=== PATIENT | female | born 1990 | race African-American/Black ===

== ENCOUNTER 2024-02-29 09:03 | Inpatient (IN) | payer OTHER ==
[2024-02-29 10:25] VITALS: BMI 24.4
[2024-02-29] MEDS ORDERED: MAGNESIUM HYDROX 2400MG/30ML ORAL SUSPENSION 30 ML CUP PO PRN (10:31)
[2024-02-29] MEDS ORDERED: IBUPROFEN 600 MG TABLET (FP) PO PRN (10:31)
[2024-02-29] MEDS ORDERED: guaiFENesin 600 MG TABLET.ER (FP) PO PRN (10:31)
[2024-02-29] MEDS ORDERED: ONDANSETRON *ODT* 4 MG TABLET SL PRN (10:31)
[2024-02-29] MEDS ORDERED: BENZOCAINE/MENTHOL (CHLORASEPTIC ) LOZENGE MM PRN (10:31)
[2024-02-29] MEDS ORDERED: NALOXONE HCL 0.4 MG/ML VIAL IM PRN (10:31)
[2024-02-29] MEDS ORDERED: ACETAMINOPHEN 325 MG TABLET (FP) PO PRN (10:31)
[2024-02-29] MEDS ORDERED: NALOXONE (NARCAN) HCL 4 MG/0.1 ML SPRAY NS PRN (10:31)
[2024-02-29] MEDS ORDERED: BISMUTH SUBSALICYLATE 524 MG/30 ML PO PRN (10:31)
[2024-02-29] MEDS ORDERED: POLYETHYLENE GLYCOL (HEALTHYLAX) 3350 17 GM PACKET PO PRN (10:31)
[2024-02-29] MEDS ORDERED: LOPERAMIDE HCL 2 MG CAPSULE PO PRN (10:31)
[2024-02-29] MEDS ORDERED: BENZONATATE 200 MG CAPSULE PO PRN (10:31)
[2024-02-29] MEDS ORDERED: IBUPROFEN 400 MG TABLET (FP) PO PRN (10:31)
[2024-02-29] MEDS ORDERED: DICYCLOMINE HCL 10 MG CAPSULE PO PRN (10:31)
[2024-02-29] MEDS ORDERED: MAG HYDROX/AL HYDROX/SIMETH 30 ML UNIT-DOSE CUP PO PRN (10:31)
[2024-02-29] MEDS: METHOCARBAMOL 500 MG TABLET PO PRN (12:46)
[2024-02-29] MEDS: hydrOXYzine PAMOATE 25 MG CAPSULE (FP) PO PRN (12:46)
[2024-02-29] MEDS ORDERED: cloNIDine HCL 0.1 MG TABLET PO PRN (18:02)
[2024-02-29] MEDS ORDERED: diazePAM 5 MG TABLET PO PRN (18:03)
[2024-02-29] MEDS: methaDONE HCL 10 MG TABLET (FOR DETOX USE ONLY) PO ONE (18:15)
[2024-02-29] MEDS: diazePAM 5 MG TABLET PO PRN (18:53)
[2024-02-29] MEDS: MELATONIN 5 MG TABLETS PO SCH (21:49)
[2024-02-29] MEDS: THIAMINE 100 MG TABLET PO SCH (21:49)
[2024-03-01] MEDS: diazePAM 5 MG TABLET PO SCH (00:24)
[2024-03-01] MEDS: PRENATAL VITAMINS W/ FOLIC ACID TABLET (FP) PO SCH (10:07)
[2024-03-01 11:45] LABS: HEMATOCRIT 35.7 % (32.4-45.2); HEMOGLOBIN 12.5 GM/dL (10.7-15.3); MCH 33.2 pg (25.7-33.7); MEAN CELL VOLUME 94.7 fl (80-96); MEAN PLT VOLUME 7.5 fl (7.5-11.1); PLATELET COUNT 419 10^3/uL (134-434); RBC 3.77 M/mm3 (3.60-5.2); WHITE BLOOD COUNT 8.1 K/mm3 (4.0-10.0)
[2024-03-01 11:50] LABS: POTASSIUM 3.9 mmol/L (3.5-5.1)
[2024-03-01 11:55] LABS: ALBUMIN 3.8 g/dl (3.4-5.0); BLOOD UREA NITROGEN 8.5 mg/dL (7-18); CALCIUM 9.6 mg/dL (8.5-10.1)
[2024-03-01 11:58] LABS: CREATININE 0.7 mg/dL (0.55-1.3)
[2024-03-01 12:00] LABS: BILIRUBIN,TOTAL 0.5 mg/dL (0.2-1); TOT PROT 7.1 g/dl (6.4-8.2)
[2024-03-01] MEDS: ACAMPROSATE CALCIUM 333 MG TABLET.DR PO SCH (13:28)
[2024-03-02] MEDS: diazePAM 5 MG TABLET PO SCH ×2 (05:24→15:27)
[2024-03-02] MEDS: methaDONE HCL 10 MG TABLET (FOR DETOX USE ONLY) PO ONE (09:10)
[2024-03-02] MEDS ORDERED: diazePAM 5 MG TABLET PO SCH (14:46)
[2024-03-03] MEDS: diazePAM 5 MG TABLET PO PRN (03:57)
[2024-03-03] MEDS ORDERED: diazePAM 5 MG TABLET PO SCH (06:00)
[2024-03-03] MEDS: diazePAM 5 MG TABLET PO SCH (06:44)
[2024-03-04] MEDS ORDERED: diazePAM 5 MG TABLET PO ONE (06:00)
[2024-03-04] MEDS: diazePAM 5 MG TABLET PO ONE ×2 (07:00→11:14)
[2024-03-04] MEDS: methaDONE HCL 10 MG TABLET (FOR DETOX USE ONLY) PO ONE (09:39)
[2024-03-04] MEDS: SUVOREXANT 5 MG TABLET PO PRN (22:20)
[2024-03-05 09:15] VITALS: BP 106/71; PULSE 94; RESP 18; TEMP 97.8
== END 2024-03-05 10:05 | disposition home or self-care (01) | DRG 773 ==
LOC: YASAS 09:03 → Y6N 11:17
PROVIDERS: ADMIT Allergy & Immunology; ATTEND Surgery
PROC: HZ2ZZZZ Detoxification Services for Substance Abuse Treatment (ICD-10-PCS; principal; 2024-02-29)
DX: F11.23 Opioid dependence with withdrawal (principal); F10.230 Alcohol dependence with withdrawal, uncomplicated; F12.10 Cannabis abuse, uncomplicated; M54.50 Low back pain, unspecified; G89.29 Other chronic pain
CPT/HCPCS: 36415; 80053; 80305; 80307; 81025; 85027; 86780; 86803; 93005; 93010

== ENCOUNTER 2024-03-05 16:15 | Observation (INO) | payer OTHER ==
[2024-03-05] MEDS ORDERED: HALOPERIDOL LACTATE 5 MG/ML ONE ×2 (16:30→18:47)
[2024-03-05] MEDS: HALOPERIDOL LACTATE 5 MG/ML IM ONE ×2 (16:49→18:57)
[2024-03-05 20:17] LABS: BASO % 0.2 % (0-2.0); EOS % 0.1 % (0-4.5); HEMATOCRIT 33.8 % (32.4-45.2); LYMPH % 9.1 % (8-40); MCHC 35.4 g/dl (32.0-36.0); MEAN CELL VOLUME 93.3 fl (80-96); MEAN PLT VOLUME 6.8 fl (7.5-11.1); MONO % 9.4 % (3.8-10.2); NEUT % 81.2 % (42.8-82.8); PLATELET COUNT 447 10^3/uL (134-434); RBC 3.63 M/mm3 (3.60-5.2); RDW 11.8 % (11.6-15.6); WHITE BLOOD COUNT 11.6 K/mm3 (4.0-10.0)
[2024-03-05 20:50] LABS: N-TERMINAL BNP 46.6 pg/ml (5-125)
[2024-03-05 20:59] LABS: POTASSIUM 3.6 mmol/L (3.5-5.1)
[2024-03-05 21:01] LABS: ALBUMIN 3.7 g/dl (3.4-5.0)
[2024-03-05 21:03] LABS: BLOOD UREA NITROGEN 7.5 mg/dL (7-18)
[2024-03-05 21:05] LABS: CREATININE 0.6 mg/dL (0.55-1.3)
[2024-03-05 21:07] LABS: BILIRUBIN,TOTAL 0.4 mg/dL (0.2-1); TOT PROT 7.3 g/dl (6.4-8.2)
[2024-03-05] MEDS ORDERED: ASPIRIN 81 MG CHEWABLE TABLETS ONE (22:49)
[2024-03-05] MEDS: ASPIRIN 81 MG CHEWABLE TABLETS PO ONE (23:11)
[2024-03-05 23:39] LABS: PHENCYCLIDINE,URINE NEGATIVE (NEGATIVE); URINE AMPHETAMINES NEGATIVE (NEGATIVE)
[2024-03-05 23:41] LABS: COCAINE, UR NEGATIVE (NEGATIVE); OPIATES, URI NEGATIVE (NEGATIVE); URINE BARBITURATES NEGATIVE (NEGATIVE)
[2024-03-05] MEDS ORDERED: LORazepam 1 MG TABLET PO PRN (23:43)
[2024-03-05 23:51] LABS: METHADONE, UR POSITIVE (NEGATIVE); URINE BENZODIAZEPINES POSITIVE (NEGATIVE)
[2024-03-06 01:56] LABS: MAGNESIUM 1.9 mg/dL (1.8-2.4)
[2024-03-06] MEDS: LORazepam 1 MG TABLET PO SCH (06:26)
[2024-03-06 08:09] LABS: BLOOD UREA NITROGEN 10.5 mg/dL (7-18)
[2024-03-06 08:12] LABS: CREATININE 0.5 mg/dL (0.55-1.3)
[2024-03-06] MEDS ORDERED: LACTATED RINGERS SOLUTION 1,000 ML/1,000 ML INFUS.BAG IV SCH (09:45)
[2024-03-06] MEDS ORDERED: THIAMINE 100 MG TABLET PO SCH (10:00)
[2024-03-06] MEDS ORDERED: ENOXAPARIN NA (PORCINE) 40 MG/0.4 ML DISP.SYRIN SQ SCH (10:00)
[2024-03-06] MEDS: ENOXAPARIN NA (PORCINE) 40 MG/0.4 ML DISP.SYRIN SQ SCH (12:49)
[2024-03-06] MEDS: FOLIC ACID 1 MG TABLET (FP) PO SCH (12:49)
[2024-03-06] MEDS: LACTATED RINGERS SOLUTION 1,000 ML/1,000 ML INFUS.BAG IV SCH (15:25)
[2024-03-06] MEDS: THIAMINE HCL 200 MG/2 ML VIAL IVPB SCH (15:26)
[2024-03-06] MEDS: LORazepam 2 MG TABLET PO SCH (21:50)
[2024-03-07] MEDS ORDERED: LORazepam 1 MG TABLET PO SCH (05:00)
[2024-03-07 12:03] LABS: BASO % 0.6 % (0-2.0); EOS % 3.8 % (0-4.5); HEMATOCRIT 33.2 % (32.4-45.2); HEMOGLOBIN 11.6 GM/dL (10.7-15.3); LYMPH % 26.9 % (8-40); MCH 32.4 pg (25.7-33.7); MCHC 34.8 g/dl (32.0-36.0); MEAN CELL VOLUME 93.1 fl (80-96); MEAN PLT VOLUME 6.8 fl (7.5-11.1); NEUT % 54.7 % (42.8-82.8); PLATELET COUNT 426 10^3/uL (134-434); RBC 3.56 M/mm3 (3.60-5.2); RDW 11.9 % (11.6-15.6); WHITE BLOOD COUNT 5.1 K/mm3 (4.0-10.0)
[2024-03-07 12:18] LABS: POTASSIUM 3.7 mmol/L (3.5-5.1)
[2024-03-07 12:20] LABS: CALCIUM 8.5 mg/dL (8.5-10.1)
[2024-03-07 12:21] LABS: BLOOD UREA NITROGEN 7.4 mg/dL (7-18)
[2024-03-07 12:23] LABS: ALBUMIN 2.9 g/dl (3.4-5.0)
[2024-03-07 12:24] LABS: CREATININE 0.6 mg/dL (0.55-1.3)
[2024-03-07 12:25] LABS: BILIRUBIN,TOTAL 0.3 mg/dL (0.2-1)
[2024-03-07 12:26] LABS: TOT PROT 6.2 g/dl (6.4-8.2)
[2024-03-07] MEDS: methaDONE HCL 10 MG TABLET PO ONE (13:00)
[2024-03-07] MEDS: diazePAM 5 MG TABLET PO ONE ×2 (15:35→16:08)
[2024-03-07] MEDS: diazePAM 5 MG TABLET PO PRN (20:51)
[2024-03-07] MEDS: MELATONIN 5 MG TABLETS PO PRN (21:14)
[2024-03-07] MEDS: THIAMINE 100 MG TABLET PO SCH (21:14)
[2024-03-08] MEDS ORDERED: LORazepam 0.5 MG TABLET PO PRN
[2024-03-08] MEDS ORDERED: LORazepam 0.5 MG TABLET PO SCH (05:00)
[2024-03-08 07:45] LABS: MCH 33.4 pg (25.7-33.7); MCHC 35.5 g/dl (32.0-36.0); MEAN PLT VOLUME 7.3 fl (7.5-11.1); PLATELET COUNT 404 10^3/uL (134-434); RDW 11.8 % (11.6-15.6)
[2024-03-08 08:04] LABS: POTASSIUM 4.3 mmol/L (3.5-5.1)
[2024-03-08 08:13] LABS: CALCIUM 8.8 mg/dL (8.5-10.1)
[2024-03-08 08:15] LABS: ALBUMIN 3.1 g/dl (3.4-5.0)
[2024-03-08 08:17] LABS: CREATININE 0.7 mg/dL (0.55-1.3)
[2024-03-08 08:18] LABS: BILIRUBIN,TOTAL 0.5 mg/dL (0.2-1); TOT PROT 6.4 g/dl (6.4-8.2)
[2024-03-08] MEDS ORDERED: diazePAM 5 MG TABLET PO SCH (10:00)
[2024-03-08] MEDS: diazePAM 5 MG TABLET PO PRN (11:55)
[2024-03-08 21:58] LABS: EPI CELLS 23 /uL (0-25.1); HYALINE CASTS 0 /uL (0-3.1); URINE APPEARANCE CLEAR; URINE BACTERIA 598 /uL (0-1359); URINE BILIRUBIN NEGATIVE (NEGATIVE); URINE COLOR YELLOW; URINE GLUCOSE (UA) NEGATIVE (NEGATIVE); URINE KETONE NEGATIVE (NEGATIVE); URINE LEUK ESTERASE TRACE (NEGATIVE); URINE NITRITE NEGATIVE (NEGATIVE); URINE PROTEIN NEGATIVE (NEGATIVE); URINE RBC 5 /uL (0-23.9); URINE WBC 64 /uL (0-25.8)
[2024-03-09] MEDS ORDERED: LORazepam 0.5 MG TABLET PO ONE (05:00)
[2024-03-09 07:32] LABS: HEMATOCRIT 32.4 % (32.4-45.2); HEMOGLOBIN 11.3 GM/dL (10.7-15.3); MCH 32.3 pg (25.7-33.7); MCHC 34.9 g/dl (32.0-36.0); MEAN CELL VOLUME 92.5 fl (80-96); PLATELET COUNT 426 10^3/uL (134-434); RBC 3.51 M/mm3 (3.60-5.2); RDW 11.6 % (11.6-15.6); WHITE BLOOD COUNT 5.1 K/mm3 (4.0-10.0)
[2024-03-09 07:50] LABS: POTASSIUM 4.2 mmol/L (3.5-5.1)
[2024-03-09 07:52] LABS: CALCIUM 9.4 mg/dL (8.5-10.1)
[2024-03-09 07:53] LABS: ALBUMIN 3.1 g/dl (3.4-5.0); BLOOD UREA NITROGEN 9.9 mg/dL (7-18)
[2024-03-09 07:56] LABS: CREATININE 0.7 mg/dL (0.55-1.3)
[2024-03-09 07:58] LABS: BILIRUBIN,TOTAL 0.4 mg/dL (0.2-1); TOT PROT 6.3 g/dl (6.4-8.2)
[2024-03-09] MEDS: diazePAM 5 MG TABLET PO SCH (09:27)
[2024-03-09 14:31] VITALS: BMI 23.9
[2024-03-09] MEDS ORDERED: ACETAMINOPHEN 325 MG TABLET (FP) PO PRN (15:22)
[2024-03-10] MEDS: VITAMINS A AND D TOPICAL OINTMENT TP ONE (07:31)
[2024-03-10] MEDS: diazePAM 5 MG TABLET PO ONE (09:07)
[2024-03-11 08:43] VITALS: BP 105/67; PULSE 98; RESP 18; TEMP 98.8
== END 2024-03-11 16:50 | disposition home or self-care (01) ==
LOC: JER 16:15 → UNDOADMOB 21:24 → JERBED 21:24 → OBSVTOIN 23:41 → INTOOBSV 23:41 → J4S 03-06 00:01 → JERBED 03-06 00:01 → J4S 03-06 14:32 → JERBED 03-06 14:32
PROVIDERS: ADMIT Internal Medicine; ATTEND Internal Medicine
PROC: 3E023GC Introduction of Other Therapeutic Substance into Muscle, Percutaneous Approach (ICD-10-PCS; principal; 2024-03-06)
DX: G92.9 Unspecified toxic encephalopathy (principal); F10.20 Alcohol dependence, uncomplicated; F11.90 Opioid use, unspecified, uncomplicated; F12.90 Cannabis use, unspecified, uncomplicated; I26.99 Other pulmonary embolism without acute cor pulmonale; D72.829 Elevated white blood cell count, unspecified; Z29.89 Encounter for other specified prophylactic measures; Z88.0 Allergy status to penicillin
CPT/HCPCS: 36415; 71045-TC-FY; 80048; 80053; 80061; 80307; 81003; 82962; 83735; 83880; 84443; 84484; 85025; 85027; 87086; 87210; 87491; 87591; 87661; 93005; 93010; 93306-TC; 96372; 99285-25; G0378